=== PATIENT | male | born 1980 | race Caucasian/White ===

== ENCOUNTER 2025-06-09 13:55 | Emergency (ER) | payer BC ==
[2025-06-09] MEDS ORDERED: Lidocaine 1% (PF) 30 ML VIAL ONE (16:35)
[2025-06-09] MEDS ORDERED: Bacitracin 1 PK ONE (17:03)
== END 2025-06-09 18:00 | disposition home or self-care (01) ==
LOC: CSHERS 13:55
DX: S61.451A Open bite of right hand, initial encounter (principal); Z23 Encounter for immunization; F17.290 Nicotine dependence, other tobacco product, uncomplicated; Z55.6 Problems related to health literacy; W54.0XXA Bitten by dog, initial encounter
CPT/HCPCS: 12002; 90471; 90715; J2003